=== PATIENT | female | born 1970 | race African-American/Black ===

== ENCOUNTER 2018-01-30 14:13 | Emergency (ER) | payer SELFPAY ==
[2018-01-30 14:38] VITALS: BP 159/72; PULSE 62; TEMP 98.7; BMI 29.6
--- NOTE | 2018-01-30 14:42 | PDOC ---
Rapid Medical Evaluation Time Seen by Provider: 01/30/18 14:37 Medical Evaluation: Allergies Allergy/AdvReac Type Severity Reaction Status Date / Time MICHAEL Inhibitors Allergy Verified 01/30/18 14:34 Penicillins Allergy Verified 01/30/18 14:34 Sulfa (Sulfonamide Allergy Verified 01/30/18 14:34 Antibiotics) 01/30/18 14:39 Patient had a brief in-person assessment of this patient The patient presents with a chief complaint of: vaginal bleed x 10 days Pertinent physical findings are: NAD even and unlabored breathing color and skin turgor good I have ordered the following: labs This patient will proceed to the ED for further evaluation.
[2018-01-30 15:03] LABS: BASO % 0.5 % (0-2.0); EOS % 3.5 % (0-4.5); HEMATOCRIT 35.9 % (32.4-45.2); LYMPH % 43.3 % (8-40); MCH 27.7 pg (25.7-33.7); MCHC 33.4 g/dl (32.0-36.0); MEAN CELL VOLUME 82.8 fl (80-96); MEAN PLT VOLUME 8.9 fl (7.5-11.1); MONO % 9.5 % (3.8-10.2); NEUT % 43.2 % (42.8-82.8); PLATELET COUNT 237 K/MM3 (134-434); RBC 4.34 M/mm3 (3.60-5.2); RDW 13.6 % (11.6-15.6)
[2018-01-30 15:22] LABS: INR 0.99 (0.83-1.09); PROTHROMBIN TIME (PATIENT) 11.2 SEC (9.7-13.0)
[2018-01-30 15:24] LABS: ACTIVATED PTT 28.8 SECONDS (25.2-36.5)
[2018-01-30 15:28] LABS: ALBUMIN 3.7 g/dl (3.4-5.0); ALK PHOS 76 U/L (45-117); ANION GAP 7 MMOL/L (8-16); BILIRUBIN,TOTAL 0.3 mg/dL (0.2-1.0); BLOOD UREA NITROGEN 17 mg/dL (7-18); CALCIUM 8.9 mg/dL (8.5-10.1); CHLORIDE 102 mmol/L (98-107); CO2 30 mmol/L (21-32); CREATININE 0.9 mg/dL (0.55-1.3); GLUCOSE,RANDOM 89 mg/dL (74-106); POTASSIUM 3.9 mmol/L (3.5-5.1); SGOT/AST 16 U/L (15-37); SGPT/ALT 29 U/L (13-61); SODIUM 139 mmol/L (136-145)
--- NOTE | 2018-01-30 15:34 | PDOC ---
History of Present Illness - General Stated Complaint: VISITING FROM OUT OF STATE/PERIOD HAS NOT STOPPED Time Seen by Provider: 01/30/18 14:37 History Source: Patient Exam Limitations: No Limitations - History of Present Illness Initial Comments: 01/30/18 15:33 The patient is a 47F with a PMH of fibroids and HTN who presents to the ER with complaints of vaginal bleeding. The patient states that she initially began spotting 9 days ago. 7 days ago she noted "heavy" bleeding, more than her normal bleeding. She had not had her period in 2 months. She has also passed "thin, thready" clots. She states that she has bled through 5 pads/day. She denies CP, lightheadedness, SOB, and DECKER. She denies dysuria and vaginal d/c. Past History - Past Medical History Allergies/Adverse Reactions: Allergies Allergy/AdvReac Type Severity Reaction Status Date / Time MICHAEL Inhibitors Allergy Verified 01/30/18 14:34 Penicillins Allergy Verified 01/30/18 14:34 Sulfa (Sulfonamide Allergy Verified 01/30/18 14:34 Antibiotics) COPD: No - Suicide/Smoking/Psychosocial Hx Smoking History: Never smoked Hx Alcohol Use: No Drug/Substance Use Hx: No Review of Systems - Review of Systems Able to Perform ROS?: Yes Comments:: 01/30/18 15:55 GENERAL/CONSTITUTIONAL: No fever or chills. No weakness. HEAD, EYES, EARS, NOSE AND THROAT: No change in vision. No ear pain or discharge. No sore throat. CARDIOVASCULAR: No chest pain, palpitations, or lightheadedness. RESPIRATORY: No cough, wheezing, shortness of breath, or hemoptysis. GASTROINTESTINAL: No nausea, vomiting, diarrhea, constipation, or abdominal pain. GENITOURINARY: Positive for vaginal bleeding. No dysuria, frequency, hematuria, or change in urination. MUSCULOSKELETAL: No joint or muscle swelling or pain. No neck or back pain. SKIN: No rash or lesions. NEUROLOGIC: No headache, numbness, tingling, focal weakness, loss of consciousness, or change in strength/sensation. ENDOCRINE: No increased thirst. No abnormal weight change. HEMATOLOGIC/LYMPHATIC: No anemia, easy bleeding, or history of blood clots. ALLERGIC/IMMUNOLOGIC: No hives or skin allergy. Is the patient limited Upper Sorbian proficient: No *Physical Exam - Vital Signs Last Vital Signs Temp Pulse Resp BP Pulse Ox 98.7 F 62 18 159/72 100 01/30/18 14:35 01/30/18 14:35 01/30/18 14:35 01/30/18 14:35 01/30/18 14:35 - Physical Exam Comments: 01/30/18 15:56 GENERAL: Well developed, well nourished. Awake and alert. No acute distress. HEENT: Normocephalic, atraumatic. Hearing grossly normal. Moist mucous membranes. PERRLA, EOMI. No conjunctival pallor. Sclera are non-icteric. NECK: Supple. Full ROM. No JVD. CARDIOVASCULAR: Regular rate and rhythm. No murmurs, rubs, or gallops. PULMONARY: No evidence of respiratory distress. Lungs clear to auscultation bilaterally. No wheezing, rales or rhonchi. ABDOMINAL: Soft. Non-tender. Non-distended. No rebound or guarding. GENITOURINARY: No CVA tenderness bilaterally. MUSCULOSKELETAL: Normal range of motion at all joints. No bony deformities or tenderness. EXTREMITIES: No cyanosis. No clubbing. No edema. No calf tenderness or swelling. SKIN: Warm and dry. Normal capillary refill. No rashes. No jaundice. NEUROLOGICAL: Alert, awake, appropriate. Cranial nerves 2-12 grossly intact. Normal speech. Gait is normal without ataxia. PSYCHIATRIC: Cooperative. Good eye contact. Appropriate mood and affect. ED Treatment Course - LABORATORY CBC & Chemistry Diagram: 01/30/18 14:46 01/30/18 14:45 - ADDITIONAL ORDERS Additional order review: Laboratory Results 01/30/18 14:45 Sodium 139 Potassium 3.9 Chloride 102 Carbon Dioxide 30 Anion Gap 7 L BUN 17 Creatinine 0.9 Creat Clearance w eGFR > 60 Random Glucose 89 Calcium 8.9 Total Bilirubin 0.3 AST 16 ALT 29 Alkaline Phosphatase 76 Total Protein 7.0 Albumin 3.7 01/30/18 14:46 RBC 4.34 MCV 82.8 MCHC 33.4 RDW 13.6 MPV 8.9 Neutrophils % 43.2 Lymphocytes % 43.3 H Monocytes % 9.5 Eosinophils % 3.5 Basophils % 0.5 Medical Decision Making - Medical Decision Making 01/30/18 15:58 The patient is a 47F with a PMH of fibroids and HTN who presents to the ER after 9 days of vaginal bleeding. Hgb 12, Hct 35. Pt is hemodynamically stable. Pending UA and upreg. Pt is well appearing. 01/30/18 16:46 UA and upreg negative. Pt informed to f/u. Will d/c. *DC/Admit/Observation/Transfer Diagnosis at time of Disposition: Vaginal bleeding - Discharge Dispostion Disposition: HOME Condition at time of disposition: Stable Decision to Admit order: No - Referrals Referrals: Ximena Reis MD [Staff Physician] - - Patient Instructions Printed Discharge Instructions: DI for Uterine Fibroids Additional Instructions: You were seen for vaginal bleeding. Your hemoglobin levels are normal. Please follow up with Dr. Reis or the [facility]. Address: [address] [place] [address] Please return to the ER if you have any signs or symptoms of chest pain, shortness of breath, uncontrollable fever, chills, nausea, vomiting, numbness, tingling, or weakness in any part of your body, changes in vision, or slurred speech. Please return to the ER if symptoms persist, worsen, or new symptoms arise. - Post Discharge Activity
[2018-01-30 15:58] LABS: HCG,QUALITATIVE URINE Negative
--- NOTE | 2018-01-30 16:19 | PDOC ---
Attending Attestation - HPI HPI: Patient is a 47 year old female, with a PMHx of fibroids, who presents with 9 days of vaginal bleeding . Patient states that she is visiting from [place] for 2 months. Patient reports constant spotting for 7 days straight. She states that yesterday her spotting stopped and today it began again. She called her OB- Clinical Marketing Manager back in [place] who told her to go to the nearest ER and have them start you on BC. Allergies: MICHAEL inhibitors, penicillins, sulfa <Varsha hJa - Last Filed: 01/30/18 16:27> - Resident Resident Name: Amador Colbert - ED Attending Attestation I have performed the following: I have examined & evaluated the patient, The case was reviewed & discussed with the resident, I agree w/resident's findings & plan, Exceptions are as noted - Physicial Exam PE: 01/30/18 16:40 Agree with residents PE - Medical Decision Making 02/02/18 19:30 Vaginal spotting H&H within normal limits patient advised to [facility] tomorrow with [facility] or with [facility] to be started on control Findings, need for follow-up and strict return instructions discussed with patient. <Brandon Faulkner - Last Filed: 02/02/18 19:31>
[2018-01-30 16:26] LABS: URINE APPEARANCE SLCLOUDY; URINE BILIRUBIN NEGATIVE (<2.0 mg/dL); URINE COLOR YELLOW; URINE GLUCOSE (UA) NEGATIVE (NEGATIVE); URINE KETONE NEGATIVE (NEGATIVE); URINE LEUK ESTERASE TRACE (NEGATIVE); URINE NITRITE NEGATIVE (NEGATIVE); URINE UROBILINOGEN NEGATIVE mg/dL (0.2-1.0)
[2018-01-30 16:41] LABS: URINE PROTEIN 1+ (NEGATIVE)
== END 2018-01-30 17:25 | disposition home or self-care (01) ==
LOC: JER 14:13
DX: N93.9 Abnormal uterine and vaginal bleeding, unspecified (principal); I10 Essential (primary) hypertension; D25.9 Leiomyoma of uterus, unspecified
CPT/HCPCS: 36415; 80053; 81003; 81015; 84703; 85025; 85610; 85730; 99282-25